=== PATIENT | male | born 1955 | race African-American/Black ===

== ENCOUNTER 2016-08-12 08:24 | Emergency (ER) ==
[2016-08-12] MEDS ORDERED: DUONEB (A & A) INH ONE (08:35)
[2016-08-12 08:44] VITALS: BP 149/96
[2016-08-12 08:58] LABS: MANUAL DIFF NEEDED? NO
[2016-08-12 09:00] LABS: BASO% 0.6 % (0.0-0.8); EOS# 0.26 X1000 (0.0-0.7); EOS% 4.8 % (0.0-10.0); HEMATOCRIT 38.3 % (42.0-52.0); HEMOGLOBIN 13.5 g/dL (14.0-18.0); IMM GRAN# 0.01 X1000 (0.0-0.04); IMM GRAN% 0.2 % (0.0-0.5); LYMPH# 1.54 X1000 (1.2-3.4); LYMPH% 28.3 % (20.5-51.1); MCH 28.1 PG (27-31); MCHC 35.2 g/dL (33-37); MCV 79.8 FL (81-99); MONO# 0.64 X1000 (0.11-0.59); MONO% 11.8 % (1.7-9.3); MPV 10.1 FL (7.4-10.4); NEUT% 54.3 % (42.2-75.2); PLT 325 X1000 (130-400)
--- NOTE | 2016-08-12 09:20 | PROVIDER DOCUMENTATION ---
HPI-Respiratory General - General Source: patient - History of Present Illness-Resp Quality of Pain: reports: pressure Severity in ED: reports: mild Onset/Duration: reports: unsure Timing: reports: still present Exposure: reports: unknown cause Cough Quality/Degree: reports: moderate, productive cough Episode Frequency: frequent episodes Current Respiratory Medication Therapy: Initiated see nurses note Modifying Factors: improves with: nothing Associated Symptoms: reports: cough, fever/chills (chills), shortness of breath , wheezing. denies: chest pain/soreness, dizziness, earache, facial pain, flu- like symptoms, headache, heart racing, hurts to breathe, hyperventilating, lightheadedness, muscle/bodyaches, nasal congestion, nasal drainage, sinus pain , short of breath, sore throat, sweaty Similar Symptoms Previously?: Yes Recently seen or treated by another doctor?: No <Mackenzie Medina - Last Filed: 08/12/16 11:09> <Jose Alejandro Tidwell - Last Filed: 08/12/16 11:10> - General Chief Complaint: Shortness of Breath Stated Complaint: SOB Time Seen by Provider: 08/12/16 09:16 Allergies/Adverse Reactions: Patient Allergies Allergy/AdvReac Type Severity Reaction Status Date / Time No Known Allergies Allergy Verified 08/12/16 08:33 Home Medications: Home Medication List Medication Instructions Recorded Confirmed Last Taken Type Albuterol Sulfate [Proair Hfa] 1 dose 08/12/16 Unknown History Amoxicillin 875 mg PO BID #20 tablet 08/12/16 Unknown Rx Prednisone 5 mg PO DIRECTED PRN #30 tablet 08/12/16 Unknown Rx - History of Present Illness-Resp Nature of Presenting Problem: Pt is 61 y/o M presents to the ED with SOB. Pt states he has been SOB his whole life. Pt denies F. Pt states chronic cough. (Mackenzie Medina) Review of Systems - Adult - REVIEW OF SYSTEMS - ADULT Constitutional: reports: chills. denies: fever Eyes: denies: blurred vision, double vision Ears, Nose, Mouth & Throat: denies: ear pain, nose pain, throat pain Cardiovascular: denies: chest pain, heart murmur, irregular heart rate Respiratory: reports: cough, shortness of breath, wheezing Gastrointestinal: denies: abdominal pain, diarrhea, nausea, vomiting Genitourinary: denies: dysuria, hematuria Musculoskeletal: denies: bone pain, joint pain, neck pain Integumentary: denies: hives, itching Neurological: denies: dizziness/vertigo, headache/migraines Psychiatric: reports: no symptoms reported Endocrine: reports: no symptoms reported Hematologic/Lymphatic: reports: no symptoms reported Allergic/Immunologic: reports: no symptoms reported All Other Systems: Reviewed and Negative <Valerie Medinaomi - Last Filed: 08/12/16 11:09> Past History - Adult - PAST MEDICAL HISTORY-ADULT Review of Records: reports: Nursing Assessment Review, Medications Reviewed, Social history reviewed & non-contributory. Major Childhood Illnesses: reports: denies history Cardiovascular: reports: denies history Respiratory: reports: asthma Gastrointestinal: reports: denies history Obstetrical/Gynecological: reports: denies history Genitourinary: reports: denies history Musculoskeletal: reports: denies history Neurological: reports: denies history Endocrine/Immune: reports: denies history Other Conditions: reports: denies history - PRIOR SURGERIES/PROCEDURES Surgical/Procedure History: reports: reviewed, not pertinent - IMMUNIZATION STATUS Childhood Immunizations: See Nurse Assessment Flu Vaccine: See Nurse Assessment - FAMILY HISTORY Family History: reviewed, not pertinent - SOCIAL HISTORY Smoking: cigarettes, less than 1 pack/day Provider spent 3-5 mins advising pt. on dangers of tobacco.: Discussed manners to quit use, and f/u contacts for add'l counseling. Substance Use: denies Living Situation: family <Paul Medinai - Last Filed: 08/12/16 11:09> Physical Exam-General - PHYSICAL EXAM-ADULT Initial Vital Signs Reviewed: Yes - CONSTITUTIONAL General Appearance: appears well, alert, no apparent distress - EYES Eyes: PERRL/EOMI, pink conjunctivae, fundi clear, no AV nicking - HEAD, EARS, NOSE, MOUTH & THROAT HENMT: normocephalic/atraumatic, moist mucous membranes, normal ENT inspection, TMs normal, pharynx normal - NECK Neck: non-tender, full range of motion, supple, normal inspection - RESPIRATORY Respiratory: chest non-tender, no pleuratic chest pain, no respiratory distress , no accessory muscle use, wheezing, increased rate - CARDIOVASCULAR Cardiovascular: normal peripheral pulses, regular rate, rhythm, no edema, no gallop, no JVD, no murmur - GASTROINTESTINAL (ABDOMEN) Abdominal Exam: normal bowel sounds, non tender, soft, no organomegaly, no pulsatile mass - LYMPHATIC Lymphatic: no adenopathy - MUSCULOSKELETAL Back Exam: normal inspection, no CVA tenderness, no vertebral tenderness, scoliosis Extremity: normal range of motion, non-tender, normal gait, normal inspection, no pedal edema, no calf tenderness, normal capillary refill - SKIN Integumentary: normal color, normal turgor, warm/dry - NEUROLOGIC Neurologic: grossly normal - PSYCHIATRIC Psych/Mental Status: normal mood/affect, oriented x 3 <Mackenzie Medina - Last Filed: 08/12/16 11:09> Progress - XRAY 1 XRAY: Bilateral XRAY Study: Chest Impression: Abnormal XRAY Interpretation: COPD and scoliosis per Dr. Tidwell <Mackenzie Medina - Last Filed: 08/12/16 11:09> <Jose Alejandro Tidwell - Last Filed: 08/12/16 11:10> - PLAN OF CARE/RESULTS Progress/Plan/Lab Results: Laboratory Tests 08/12/16 08:50 WBC 5.44 RBC 4.80 Hgb 13.5 L Hct 38.3 L MCV 79.8 L MCH 28.1 MCHC 35.2 RDW Std Deviation 13.4 Plt Count 325 MPV 10.1 Immature Gran % (Auto) 0.2 Neut % (Auto) 54.3 Lymph % (Auto) 28.3 [place] % (Auto) 11.8 H Eos % (Auto) 4.8 Baso % (Auto) 0.6 Immature Gran # (Auto) 0.01 Neut # (Auto) 2.96 Lymph # (Auto) 1.54 [place] # (Auto) 0.64 H Eos # (Auto) 0.26 Baso # (Auto) 0.03 Orders Category Date Time Status CHEST-2 VIEWS [RAD] Stat Exams 08/12/16 08:35 Taken CBC WITH DIFF [HEME] Stat Lab 08/12/16 08:50 Completed COMPREHENSIVE METABOLIC PANEL [CHEM] Stat Lab 08/12/16 09:17 Ordered Albuterol 2.5MG/Ipratrop 0.5MG [Duoneb (A & A)] Med 08/12/16 08:35 Discontinued 3 ml INH NOW ONE Aerosol Treatments Routine Oth 08/12/16 08:35 Active Aerosol Treatments Stat Oth 08/12/16 08:35 Active Aerosol Treatments Stat [facility] 08/12/16 08:35 Active Pulse Oximetry Stat [facility] 08/12/16 08:35 Active Vital Signs - 24 hr 08/12/16 08:30 Temperature 97.3 F L Pulse Rate 86 Respiratory 22 Rate Blood Pressure 149/96 O2 Sat by Pulse 98 Oximetry Laboratory Tests 08/12/16 08/12/16 08:50 08:50 WBC 5.44 RBC 4.80 Hgb 13.5 L Hct 38.3 L MCV 79.8 L MCH 28.1 MCHC 35.2 RDW Std Deviation 13.4 Plt Count 325 MPV 10.1 Immature Gran % (Auto) 0.2 Neut % (Auto) 54.3 Lymph % (Auto) 28.3 [place] % (Auto) 11.8 H Eos % (Auto) 4.8 Baso % (Auto) 0.6 Immature Gran # (Auto) 0.01 Neut # (Auto) 2.96 Lymph # (Auto) 1.54 [place] # (Auto) 0.64 H Eos # (Auto) 0.26 Baso # (Auto) 0.03 Sodium 141 Potassium 4.2 Chloride 106 Carbon Dioxide 29 Anion Gap 6 BUN 12 Creatinine 1.0 Estimated GFR/1.73 m2 > 60 BUN/Creatinine Ratio 12 Glucose 62 L Calculated Osmolality 279 Calcium 8.8 Total Bilirubin 0.70 AST 35 H ALT 17 Alkaline Phosphatase 80 Total Protein 6.9 Albumin 4.1 Globulin 3.0 Albumin/Globulin Ratio 1.0 (Mackenzie Medina) Departure <Mackenzie Medina - Last Filed: 08/12/16 11:09> - Departure Time of Disposition Order: 11:10 Certified Medical Emergency: Emergent <Jose Alejandro Tidwell - Last Filed: 08/12/16 11:10> - Departure DIAGNOSIS: COPD exacerbation Disposition: HOME 01 Condition: Stable Prescriptions: Amoxicillin 875 mg PO BID #20 tablet Prednisone 5 mg PO DIRECTED PRN #30 tablet PRN Reason: Wheezing Referrals: None,PCP [Primary Care Provider] - Instructions: Amoxicillin capsules or tablets, Prednisone tablets Attestation - Scribe Verification/Attestation Scribe:: Mackenzie Medina Acting as Scribe for:: Jose Alejandro Tidwell Scribe documention review:: This chart was documented by a scribe and accurately reflects the service the provider performed and the decisions made by the provider. <Mackenzie Medina - Last Filed: 08/12/16 11:09> Physician Attestation
[2016-08-12 09:38] LABS: AGAP 6; ALBUMIN 4.1 g/dL (3.5-5.0); ALKALINE PHOSPHATASE 80 U/L (32-122); BUN 12 mg/dL (8-22); CALCIUM 8.8 mg/dL (8.8-10.2); CHLORIDE 106 mmol/L (98-107); COSMO 279; GOT 35 U/L (10-34); GPT 17 U/L (10-44); POTASSIUM 4.2 mmol/L (3.5-5.1); SODIUM 141 mmol/L (136-145); TCO2 29 mmol/L (25-35); TOTAL PROTEIN 6.9 g/dL (6.3-8.3)
--- NOTE | 2016-08-12 13:53 | Diag Imaging Result Document ---
PROCEDURE NAME: CHEST-2 VIEWS - 08/12/2016 PA AND LATERAL RADIOGRAPH OF THE CHEST: COMPARISON: None available. FINDINGS: The lungs appear somewhat hyperinflated suggesting possible COPD. The lungs are clear otherwise. There is no definite pleural fluid collection. Cardiac silhouette and central vasculature are unremarkable. There is thoracic scoliosis. IMPRESSION: Suggestion of possible COPD. No definite acute pathology.
== END 2016-08-12 11:19 | disposition home or self-care (01) ==
LOC: P.ED 08:24
DX: J44.1 Chronic obstructive pulmonary disease with (acute) exacerbation (principal); R05 Cough; R09.3 Abnormal sputum; R68.83 Chills (without fever); R06.02 Shortness of breath; R06.2 Wheezing; F17.210 Nicotine dependence, cigarettes, uncomplicated; Z71.6 Tobacco abuse counseling
CPT/HCPCS: 36415; 71020; 80053; 85025; 94640; 99283

== ENCOUNTER 2016-08-28 13:15 | Inpatient (IN) ==
[2016-08-28 14:05] LABS: MANUAL DIFF NEEDED? NO
[2016-08-28 14:08] LABS: BASO% 0.1 % (0.0-0.8); EOS# 0.04 X1000 (0.0-0.7); EOS% 0.4 % (0.0-10.0); HEMATOCRIT 43.5 % (42.0-52.0); HEMOGLOBIN 15.8 g/dL (14.0-18.0); IMM GRAN# 0.02 X1000 (0.0-0.04); IMM GRAN% 0.2 % (0.0-0.5); LYMPH# 2.35 X1000 (1.2-3.4); LYMPH% 22.1 % (20.5-51.1); MCH 28.6 PG (27-31); MCHC 36.3 g/dL (33-37); MCV 78.7 FL (81-99); MONO# 1.05 X1000 (0.11-0.59); MONO% 9.9 % (1.7-9.3); MPV 11.1 FL (7.4-10.4); NEUT% 67.3 % (42.2-75.2); PLT 295 X1000 (130-400); RBC 5.53 XMIL (4.7-6.1)
[2016-08-28 14:35] LABS: ALBUMIN 4.2 g/dL (3.5-5.0); CALCIUM 9.6 mg/dL (8.8-10.2); POTASSIUM 4.3 mmol/L (3.5-5.1); TOTAL BILIRUBIN 1.1 mg/dL (0.20-1.00); TOTAL PROTEIN 7.6 g/dL (6.3-8.3)
[2016-08-28] MEDS ORDERED: SODIUM CHLORIDE 0.9% INJ ONE (15:04)
[2016-08-28] MEDS ORDERED: PROTONIX IV ONE (15:04)
[2016-08-28] MEDS ORDERED: G.I. COCKTAIL PO ONE (15:04)
[2016-08-28] MEDS ORDERED: ZOFRAN IV ONE (15:04)
[2016-08-28] MEDS ORDERED: M.V.I.-12 10 ML, FOLIC ACID 1 MG, MAGNESIUM SULFATE 1 GM, THIAMINE 100 MG in NS 1,000 ML IV ONE (15:07)
[2016-08-28] MEDS ORDERED: NS 1,000 ML IV ONE (15:10)
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
--- NOTE | 2016-08-28 16:19 | Diag Imaging Result Document ---
PROCEDURE NAME: ABDOMEN/PELVIS W/O CONTRAST - 08/28/2016 CT ABDOMEN AND PELVIS WITHOUT CONTRAST: COMPARISON: There is minimal bronchiectasis at the left lower lung zone. There is no pleural fluid collection. The gallbladder and appendix appear normal. The stomach is grossly unremarkable. There are no renal or ureteral stones identified and there is no hydronephrosis. The kidneys are grossly unremarkable, otherwise. The urinary bladder is unremarkable. The liver, pancreas, adrenal glands, and the remainder of the GI tract is essentially unremarkable. There is a 1.1 cm low- dense lesion involving the spleen posteriorly that is nonspecific, probably a cyst containing proteinaceous debris. No focal inflammatory changes, free abdominal gas, or free fluid is appreciated. There is scoliosis and fairly extensive degenerative change throughout the spine as well as both hips. IMPRESSION: Incidental/nonacute findings detailed above, but no definite acute pathology.
[2016-08-28 19:05] LABS: URINE CULTURE NEEDED? NO; URINE MICRO REVIEW NEEDED? NO; URINE SOURCE CLEAN CATCH
[2016-08-28 19:10] LABS: BILIRUBIN URINE NEGATIVE (NEGATIVE); BLOOD URINE NEGATIVE (NEGATIVE); COLOR YELLOW; GLUCOSE URINE NEGATIVE (NEGATIVE); LEUKOCYTES URINE NEGATIVE (NEGATIVE); NITRITE URINE NEGATIVE (NEGATIVE); PH URINE 5.5; PROTEIN URINE 30 mg/dL (NEGATIVE); TURBIDITY URINE CLEAR (CLEAR); UROBILINOGEN URINE NORMAL (NORMAL)
[2016-08-28 19:12] LABS: INR 1.02; PROTIME 10.7 Seconds (9.2-11.7)
[2016-08-28 19:14] LABS: UR EPITHELIAL CELLS <10 /HPF (<10); URINE BACTERIA NEGATIVE /HPF; URINE RBC <10 /HPF (<10); URINE WBC <10 /HPF (<10)
[2016-08-28] MEDS ORDERED: NICODERM PATCH TD PRN (19:29)
[2016-08-28 19:44] LABS: UR CREAT RANDOM 424.7 mg/dL (14-26)
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
[2016-08-29] MEDS ORDERED: ZOFRAN IV PRN (00:26)
[2016-08-29] MEDS ORDERED: ATIVAN IV PRN ×2 (00:26)
[2016-08-29] MEDS: DUONEB (A & A) INH SCH ×7 (00:26→23:20)
[2016-08-29] MEDS: NS 1,000 ML IV SCH ×3 (01:19→17:48)
[2016-08-29] MEDS: M.V.I.-12 10 ML, FOLIC ACID 1 MG, MAGNESIUM SULFATE 1 GM, THIAMINE 100 MG in NS 1,000 ML IV SCH (01:19)
[2016-08-29] MEDS: NICODERM PATCH TD SCH (01:19)
[2016-08-29] MEDS: PROTONIX IV SCH ×2 (01:19→12:36)
[2016-08-29] MEDS: ROCEPHIN 1 GM/NS 1 GM/50 ML IVPB IV SCH (01:20)
[2016-08-29] MEDS: SODIUM CHLORIDE 0.9% INJ ONE (01:20)
[2016-08-29 07:11] LABS: IRON SATURATION 52 %; TIBC 206 ug/dL; TOTAL IRON 108 ug/dL (53-167); UNBOUND IRON 98 ug/dL (112-346)
[2016-08-29 07:14] LABS: FREE T4 1.24 ng/dL (0.93-1.70)
[2016-08-29 07:29] LABS: AGAP 8; BUN 31 mg/dL (8-22); CALCIUM 7.9 mg/dL (8.8-10.2); CHLORIDE 107 mmol/L (98-107); COSMO 287; HDL 50 mg/dL (35-55); LDL 56 mg/dL; POTASSIUM 4.6 mmol/L (3.5-5.1); SODIUM 141 mmol/L (136-145); TCO2 26 mmol/L (25-35); TRIGLYCERIDES 87 mg/dL (39-160); VLDL 17 mg/dL
--- NOTE | 2016-08-29 08:28 | Diag Imaging Result Document ---
PROCEDURE NAME: US RENAL 2 (RETROPER) COMPLETE - 08/29/2016 RENAL ULTRASOUND: FINDINGS: The right kidney measures 10.1 x 4.7 x 4.0 cm. Normal renal echogenicity and cortical thickness. No renal stone or hydronephrosis. No renal mass. The left kidney measures 10.1 x 3.9 x 4.1 cm. Normal renal echogenicity and cortical thickness. No renal stone or hydronephrosis. The kidney may be malrotated. The urinary bladder is moderately distended and appears normal. IMPRESSION: Normal renal ultrasound.
[2016-08-29] MEDS ORDERED: SODIUM CHLORIDE 0.9% 10 ML ONE (09:48)
[2016-08-29 10:09] LABS: HEMATOCRIT 35.9 % (42.0-52.0); HEMOGLOBIN 12.8 g/dL (14.0-18.0); MCH 28.8 PG (27-31); MCHC 35.7 g/dL (33-37); MCV 80.9 FL (81-99); MPV 11.2 FL (7.4-10.4); RBC 4.44 XMIL (4.7-6.1)
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
--- NOTE | 2016-08-29 16:33 | PROGRESS NOTE ---
DATE: 08/29/2016 SUBJECTIVE: This patient states that he is feeling much better, he is tolerating p.o. He is not complaining of pain at this moment. He denies nausea, vomiting, diarrhea, constipation. OBJECTIVE: Vital Signs: Temperature 98.3 degrees, pulse 74, respiratory rate 18, blood pressure 103/69, O2 saturation 94% on room air. HEENT: Head normocephalic. No trauma. PERRLA. Neck: Supple. No JVD. No masses. Central trachea. Chest: Clear to auscultation. No wheezing. No rales. Cardiovascular: RRR. No murmurs. No gallops or rubs. Abdomen: Soft, mild tenderness to palpation in the epigastric area. Positive bowel sounds. Extremities: No edema. No clubbing. No cyanosis. Neurological: The patient is alert and oriented x3. No focal neurological deficits. LABORATORY: WBC 6.5, hemoglobin 12.8, hematocrit 35.9, platelet 236,000. Sodium 141, potassium 4.6, chloride 107, bicarbonate 26, BUN 31, creatinine 1.7, calcium 7.9. ASSESSMENT AND PLAN: 1. Upper gastrointestinal bleed. I will continue with pantoprazole twice a day. Gastroenterology Department already evaluated this patient and they plan to scope this patient in the morning. He will be NPO after midnight. 2. GERD. Continue with PPIs. 3. History of asthma. He is not having any kind of exacerbation at this moment. We will monitor. 4. History of COPD. He is not having any exacerbation at this moment. We will monitor. 5. Nicotine dependence. I will continue with the nicotine patch. He has been highly advised against cigarette smoking. I will continue with daily cessation education. 6. Possible alcohol dependence. This patient has been highly advised against alcohol abuse. I will put this patient on Ativan p.r.n. in case of withdrawal or delirium tremens. cc: Robi Kent MD
[2016-08-30] MEDS: ROCEPHIN 1 GM/NS 1 GM/50 ML IVPB IV SCH (00:12)
[2016-08-30] MEDS: PROTONIX IV SCH ×2 (00:12→11:40)
[2016-08-30] MEDS: SODIUM CHLORIDE 0.9% INJ ONE (00:13)
[2016-08-30] MEDS: M.V.I.-12 10 ML, FOLIC ACID 1 MG, MAGNESIUM SULFATE 1 GM, THIAMINE 100 MG in NS 1,000 ML IV SCH (00:13)
[2016-08-30] MEDS: DUONEB (A & A) INH SCH ×6 (03:20→23:07)
[2016-08-30 07:00] LABS: MANUAL DIFF NEEDED? NO
[2016-08-30 07:04] LABS: BASO% 0.4 % (0.0-0.8); EOS# 0.07 X1000 (0.0-0.7); EOS% 1.2 % (0.0-10.0); HEMATOCRIT 34.7 % (42.0-52.0); HEMOGLOBIN 12.5 g/dL (14.0-18.0); LYMPH# 1.65 X1000 (1.2-3.4); LYMPH% 28.9 % (20.5-51.1); MCH 29.1 PG (27-31); MCV 80.9 FL (81-99); MONO# 0.77 X1000 (0.11-0.59); MONO% 13.5 % (1.7-9.3); MPV 10.9 FL (7.4-10.4); PLT 211 X1000 (130-400); RBC 4.29 XMIL (4.7-6.1)
[2016-08-30 07:22] LABS: AGAP 8; BUN 16 mg/dL (8-22); CALCIUM 8.1 mg/dL (8.8-10.2); CHLORIDE 104 mmol/L (98-107); COSMO 273; POTASSIUM 5.4 mmol/L (3.5-5.1); SODIUM 136 mmol/L (136-145); TCO2 24 mmol/L (25-35)
[2016-08-30 10:08] LABS: HEPATITIS PROFILE ACUTE SEE COMMENTS
[2016-08-30] MEDS: NICODERM PATCH TD SCH (10:13)
[2016-08-30] MEDS: NS 1,000 ML IV SCH ×2 (10:59→12:05)
[2016-08-30] MEDS: SODIUM CHLORIDE 0.9% 10 ML ONE (11:41)
--- NOTE | 2016-08-30 15:40 | PROGRESS NOTE ---
DATE: 08/30/2016 SUBJECTIVE: This patient states that he is feeling better. He is NPO today because he is going for an endoscopy. No complaints. OBJECTIVE: Vital Signs: Temperature. 97.7 degrees, pulse 67, respiratory rate 16, blood pressure 128/99, O2 saturation 96 on room air. HEENT: Head normocephalic. No trauma. PERRLA. Neck: Supple. No JVD. No masses. Central trachea. Chest: Clear to auscultation. No wheezing. No rales. Cardiovascular: RRR. No murmurs. No gallops or rubs. Abdomen: Soft, mild tenderness to palpation in the epigastric area. Positive bowel sounds. Extremities: No edema. No clubbing. No cyanosis. Neurological: The patient is alert and oriented x3. No focal neurological deficits. LABORATORY: WBC 5.7, hemoglobin 12.5, hematocrit 34.7, platelets 211,000. Sodium 136, potassium 5.4, chloride 104, bicarbonate 24, BUN 16, creatinine 1.2, calcium 8.1, magnesium 1.8. ASSESSMENT AND PLAN: 1. Upper gastrointestinal bleed. We will continue with pantoprazole twice a day. Hopefully he will be scoped today by Gastroenterology Department. This patient is NPO. 2. Gastroesophageal reflux disease. Continue with PPIs. 3. History of asthma. He is not having any kind of exacerbation at this moment. 4. History of COPD not in exacerbation. We will monitor. 5. Nicotine dependence. I will continue with nicotine patch. He has been highly advised against smoking cigarettes. I will continue with daily cessation education. 6. Possible alcohol dependence. This patient has been highly advised against alcohol abuse. This patient has been placed on Ativan p.r.n. in case of withdrawal or delirium tremens. cc: Robi Kent MD
[2016-08-30] MEDS ORDERED: DIPRIVAN 1% ONE (17:42)
[2016-08-30] MEDS ORDERED: MIRALAX PO ONE (17:49)
[2016-08-30] MEDS ORDERED: DIFLUCAN PO ONE (18:00)
[2016-08-30] MEDS: CARAFATE LIQUID PO SCH (21:23)
[2016-08-31] MEDS: ROCEPHIN 1 GM/NS 1 GM/50 ML IVPB IV SCH (00:43)
[2016-08-31] MEDS: SODIUM CHLORIDE 0.9% 10 ML ONE (00:43)
[2016-08-31] MEDS: M.V.I.-12 10 ML, FOLIC ACID 1 MG, MAGNESIUM SULFATE 1 GM, THIAMINE 100 MG in NS 1,000 ML IV SCH (00:43)
[2016-08-31] MEDS: PROTONIX IV SCH (00:43)
[2016-08-31] MEDS: DUONEB (A & A) INH SCH ×3 (03:44→11:27)
[2016-08-31 07:06] LABS: MANUAL DIFF NEEDED? NO
[2016-08-31 07:20] LABS: AGAP 5; BUN 12 mg/dL (8-22); CALCIUM 8.3 mg/dL (8.8-10.2); CHLORIDE 102 mmol/L (98-107); COSMO 275; POTASSIUM 4.7 mmol/L (3.5-5.1); SODIUM 138 mmol/L (136-145); TCO2 31 mmol/L (25-35)
[2016-08-31 07:22] LABS: BASO% 0.6 % (0.0-0.8); EOS# 0.13 X1000 (0.0-0.7); EOS% 2.8 % (0.0-10.0); HEMATOCRIT 36.4 % (42.0-52.0); LYMPH# 1.76 X1000 (1.2-3.4); LYMPH% 37.9 % (20.5-51.1); MCH 28.6 PG (27-31); MCHC 35.7 g/dL (33-37); MCV 80.2 FL (81-99); MONO# 0.64 X1000 (0.11-0.59); MONO% 13.8 % (1.7-9.3); NEUT% 44.9 % (42.2-75.2); PLT 221 X1000 (130-400); RBC 4.54 XMIL (4.7-6.1)
[2016-08-31 07:53] VITALS: BP 125/89
[2016-08-31] MEDS ORDERED: DIFLUCAN PO SCH (09:00)
[2016-08-31] MEDS: CARAFATE LIQUID PO SCH (09:10)
[2016-08-31] MEDS: NICODERM PATCH TD SCH (09:11)
[2016-08-31] MEDS ORDERED: ANESTHESIA PB SET 88 IN 5742 ONE (09:52)
[2016-08-31] MEDS ORDERED: XYLOCAINE-MPF 2% ONE (09:52)
[2016-08-31] MEDS ORDERED: EXTENSION SET 32 IN 4522 ONE (09:52)
[2016-08-31] MEDS ORDERED: LR 1,000 ML ONE (09:52)
[2016-08-31] MEDS ORDERED: SODIUM CHLORIDE 0.9% 10 ML ONE (10:58)
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
--- NOTE | 2016-09-01 15:59 | OPERATIVE NOTE ---
PROCEDURE DATE: 08/30/2016 REFERRING PHYSICIAN: Robi Walter M.D. INDICATIONS FOR PROCEDURE: 1. Coffee-ground emesis. 2. Nausea with vomiting. 3. Melena. 4. NSAID use. 5. History of chronic ETOH use. PROCEDURE PERFORMED: Esophagogastroduodenoscopy with biopsy. CONSENT: Informed consent was obtained from the patient prior to the procedure. The risks, benefits, and alternatives were discussed. MEDICATION: The patient received monitored anesthesia care. PERFORMING PHYSICIAN: Claire Goldsmith M.D. ASSISTANTS: 1. ST. Doc 2. Abiel Soliz RN. 3. Agus Zendejas CRNA. 4. Orion Jarrett M.D. (anesthesia). COMPLICATIONS: There were no complications. ESTIMATED BLOOD LOSS: Less than 1 mL. SPECIMENS REMOVED: Gastric biopsy. FINDINGS: After sedation was achieved, the upper endoscope was inserted to the 2nd portion of the duodenum. The hypopharynx appeared endoscopically normal. In the upper and middle esophagus, there were multiple whitish plaques consistent with Libertad esophagitis. In the distal esophagus, there were streaks of erythema with superficial erosions that were near circumferential consistent with grade C erosive esophagitis. The GE junction was measured at 45 cm from the incisors. There is a hiatal hernia that spanned from 45-50 cm. In the gastric lumen, there was severe acute erosive gastritis with old blood but no active bleeding. In the antrum, there was a large whitish based ulcer with no stigmata of bleeding. On retroflexed view, there was erosive gastritis with benign appearing polyps. Biopsies were taken from the gastric mucosa for further evaluation. The pylorus appeared grossly normal. In the duodenum, there was a 10-15 mm whitish based ulcer in the bulb. The second and third portion of the duodenum had duodenitis. There were no other findings. Specifically, there was no evidence of Jasmine esophagus. The esophageal veins were prominent but no varices per se were seen. After the exam was complete the lumen was decompressed and the scope was removed without incident. IMPRESSION: 1. Whitish plaques in upper esophagus consistent with Libertad esophagitis. 2. Grade C erosive esophagitis. 3. Hiatal hernia. 4. Severe acute erosive gastritis. 5. Antral ulcer with a whitish base. 6. Fundic gland polyps. 7. Duodenal bulb ulcer. 8. Severe duodenitis. 9. No esophageal varices. 10. No Jasmine esophagus. RECOMMENDATION: 1. Await biopsy results. 2. Begin Prilosec 40 mg daily. 3. Begin Carafate 1 g 4 times a day for 12 weeks and then stop. 4. Begin Diflucan 200 mg today followed by 100 mg daily for 20 days. 5. Will advance his diet as tolerated. 6. Will have the patient return to clinic in 6 weeks to assess interval progress. He should have a CBC drawn on the morning of clinic so that we have the results available at the time of his appointment. cc: Robi Kent MD MTDD
== END 2016-08-31 11:50 | disposition home or self-care (01) ==
LOC: ED 13:15 → SUATTDRO 20:21 → EDIPHOLD 20:21 → 3N 08-29 08:59
PROVIDERS: ATTEND Internal Medicine

== ENCOUNTER 2016-09-28 03:06 | Inpatient (IN) ==
--- NOTE | 2016-09-28 03:15 | PROVIDER DOCUMENTATION ---
HPI-Syncope/Dizziness - General Chief Complaint: Near Syncope Stated Complaint: weakness Time Seen by Provider: 09/28/16 03:15 Source: family Allergies/Adverse Reactions: Patient Allergies Allergy/AdvReac Type Severity Reaction Status Date / Time Iodine and Iodide Containing Allergy SWELLING Verified 09/28/16 03:13 Produc Home Medications: Home Medication List Medication Instructions Recorded Confirmed Last Taken Type Fluconazole [Diflucan] 100 mg PO DAILY #20 tablet 08/31/16 09/28/16 Unknown Rx Pantoprazole Sodium [Protonix] 40 mg PO BID #60 tablet. 08/31/16 09/28/16 Unknown Rx Pantoprazole Sodium [Protonix] 40 mg PO DAILY #30 tablet. 08/31/16 09/28/16 Unknown Rx Sucralfate [Carafate] 1 gm PO Q6HR #112 tablet 08/31/16 09/28/16 Unknown Rx - History of Present Illness-Syncope/Dizzy Prior Episodes: reports: single episode today Onset/Duration: denies: unsure, abrupt, gradual, just prior to arrival, 1/2 hour ago, 1 hour ago, 1-3 hours ago, 4-6 hours ago, 24 hours ago, 2 days ago, 3 days ago, 4 days ago, 5 days ago, 6 days ago, 1 week ago, last week, this morning, this afternoon, this evening, last night, other Review of Systems - Adult - REVIEW OF SYSTEMS - ADULT Constitutional: reports: no symptoms reported Eyes: reports: no symptoms reported Ears, Nose, Mouth & Throat: reports: no symptoms reported Cardiovascular: reports: no symptoms reported Respiratory: reports: no symptoms reported Gastrointestinal: reports: no symptoms reported Genitourinary: reports: no symptoms reported Musculoskeletal: reports: no symptoms reported Integumentary: reports: no symptoms reported Neurological: reports: no symptoms reported Psychiatric: reports: no symptoms reported Endocrine: reports: no symptoms reported Hematologic/Lymphatic: reports: no symptoms reported Allergic/Immunologic: reports: no symptoms reported All Other Systems: Reviewed and Negative Past History - Adult - PAST MEDICAL HISTORY-ADULT Review of Records: reports: Old Records Reviewed, Nursing Assessment Review, Medications Reviewed, Social history reviewed & non-contributory. Major Childhood Illnesses: reports: denies history Cardiovascular: reports: denies history Respiratory: reports: asthma Gastrointestinal: reports: GERD Obstetrical/Gynecological: reports: denies history Genitourinary: reports: denies history Musculoskeletal: reports: denies history Neurological: reports: denies history Endocrine/Immune: reports: denies history Other Conditions: reports: denies history - PRIOR SURGERIES/PROCEDURES Surgical/Procedure History: reports: reviewed, not pertinent - IMMUNIZATION STATUS Childhood Immunizations: See Nurse Assessment Flu Vaccine: See Nurse Assessment - FAMILY HISTORY Family History: reviewed, not pertinent Physical Exam-General - PHYSICAL EXAM-ADULT Initial Vital Signs Reviewed: Yes - CONSTITUTIONAL General Appearance: appears well, alert, no apparent distress Progress - PLAN OF CARE/RESULTS Progress/Plan/Lab Results: Laboratory Results - last 24 hr 09/28/16 09/28/16 03:25 03:25 Creatine Kinase Index 1.4 CK-MB (CK-2) 4.24 [id number] Pept 179 H Orders Category Date Time Status Admit - [facility] Routine AdmDCTranf 09/28/16 05:59 Ordered Activity - Strict Bedrest ORDERED Care 09/28/16 05:59 Active Call Admitting on Arrival AT ADMISSION Care 09/28/16 05:59 Active Cardiac Monitoring DIRECTED Care 09/28/16 03:16 Active Oxygen Therapy- ED Nursing DIRECTED Care 09/28/16 03:16 Active Saline Loc DIRECTED Care 09/28/16 05:59 Active Saline Loc NOW Care 09/28/16 03:16 Active Vital Signs Order ARRIVAL TO ROOM Care 09/28/16 05:59 Active NPO Diet 09/28/16 06:00 Completed CHEST-2 VIEWS [RAD] Stat Exams 09/28/16 03:16 Completed HEAD W/O CONTRAST [CT] Stat Exams 09/28/16 03:44 Completed ALCOHOL BLOOD Stat Lab 09/28/16 03:25 Completed CBC WITH ELECTRONIC DIFF [HEME] Stat Lab 09/28/16 03:25 Completed CK PROFILE [SP CHEM] Stat Lab 09/28/16 03:25 Completed COMPREHENSIVE METABOLIC PANEL [CHEM] Stat Lab 09/28/16 03:25 Completed MAGNESIUM [CHEM] Stat Lab 09/28/16 03:25 Completed PRO B-NATRIURETIC PEPTIDE Stat Lab 09/28/16 03:[address] Com[address]IME WITH INR PL [COAG] Stat Lab 09/28/16 03:[address] [COAG] Stat Lab 09/28/16 03:25 Completed TROPONIN T Stat Lab 09/28/16 03:25 Completed 0.9% Sodium Chloride Inj [Ns] 1,000 ml Med 09/28/16 05:59 Discontinued IV 150 mls/hr Oxygen Device Routine Oth 09/28/16 05:59 Active EKG [EKG] Stat Ther 09/28/16 03:16 Draft Transfer/Admit Order [TRANSFER] Routine Transfer 09/28/16 06:00 Ordered Result Diagrams: 09/28/16 03:25 09/28/16 03:25 Departure - Departure Time of Disposition Decision: 03:08 DIAGNOSIS: COPD exacerbation Disposition: HOME 01 Certified Medical Emergency: Emergent Condition: Stable - Critical Care Note This patient required my direct & personal management of CC.: No
[2016-09-28 03:38] LABS: MANUAL DIFF NEEDED? NO
[2016-09-28 03:40] LABS: BASO% 0.3 % (0.0-0.8); EOS# 0.05 X1000 (0.0-0.7); EOS% 0.8 % (0.0-10.0); HEMATOCRIT 42.8 % (42.0-52.0); HEMOGLOBIN 15.4 g/dL (14.0-18.0); IMM GRAN# 0.02 X1000 (0.0-0.04); IMM GRAN% 0.3 % (0.0-0.5); LYMPH# 1.81 X1000 (1.2-3.4); LYMPH% 29.7 % (20.5-51.1); MCH 28.2 PG (27-31); MCV 78.2 FL (81-99); MONO# 0.84 X1000 (0.11-0.59); MONO% 13.8 % (1.7-9.3); MPV 10.4 FL (7.4-10.4); NEUT% 55.1 % (42.2-75.2); PLT 301 X1000 (130-400); RBC 5.47 XMIL (4.7-6.1)
[2016-09-28 04:01] LABS: INR 1.06 (0.86-1.15); PROTIME 14.1 Seconds (12.1-15.5)
[2016-09-28 04:02] LABS: PTT PL 29.1 Seconds (22.6-43.9)
[2016-09-28 04:06] LABS: AGAP 17; ALBUMIN 4.5 g/dL (3.5-5.0); ALKALINE PHOSPHATASE 81 U/L (32-122); BUN 7 mg/dL (8-22); CALCIUM 9.2 mg/dL (8.8-10.2); CHLORIDE 98 mmol/L (98-107); COSMO 274; GOT 24 U/L (10-34); GPT 13 U/L (10-44); MAGNESIUM 2.1 mg/dL (1.5-2.7); POTASSIUM 3.4 mmol/L (3.5-5.1); SODIUM 138 mmol/L (136-145); TCO2 23 mmol/L (25-35)
[2016-09-28 04:07] LABS: CK PROFILE 293 U/L (24-204)
[2016-09-28 04:21] LABS: CK INDEX 1.4 (0.0-2.5); CK-MB 4.24 ng/mL (0.0-5.0)
[2016-09-28] MEDS ORDERED: NS 1,000 ML IV ONE (05:59)
--- NOTE | 2016-09-28 05:59 | EKG Report ---
Test Performed on : 09/28/2016 03:05:41 AM Test Reason : CHEST PAIN Blood Pressure : / mmHG Vent. Rate : 097 BPM Atrial Rate : 097 BPM P-R Int : 118 ms QRS Dur : 076 ms QT Int : 368 ms P-R-T Axes : 064 -46 076 degrees QTc Int : 467 ms Sinus rhythm. with premature atrial complexes. and premature ventricular complexes. or fusion comple xes Left axis deviation Abnormal ECG No previous ECGs available Unconfirmed Result
--- NOTE | 2016-09-28 06:59 | Diag Imaging Result Document ---
PROCEDURE NAME: CHEST-2 VIEWS - 09/28/2016 FRONTAL AND LATERAL CHEST, TWO VIEWS: COMPARISON: 08/12/2016. FINDINGS: The lungs are hyperexpanded. The heart is not enlarged. The pulmonary vessels are small. No pneumonia. No pleural effusions. No free air beneath the diaphragm. There is moderate scoliosis. IMPRESSION: Severe emphysema.
--- NOTE | 2016-09-28 07:38 | Diag Imaging Result Document ---
PROCEDURE NAME: HEAD W/O CONTRAST - 09/28/2016 CT BRAIN WITHOUT CONTRAST: FINDINGS: No parenchymal hemorrhage. No epidural or subdural hematoma. No subarachnoid hemorrhage. No mass identified on this noncontrasted exam. No midline shift. No hydrocephalus. No sinus opacification. IMPRESSION: No hemorrhage. Negative brain CT without contrast. A preliminary report was given at 5:35 a.m..
[2016-09-28 13:40] VITALS: BP 107/077
--- NOTE | 2016-10-12 15:44 | HISTORY AND PHYSICAL ---
CHIEF COMPLAINT: Syncope. HISTORY OF PRESENT ILLNESS: The patient presented to the emergency department after having felt lightheaded and dizzy at home. He states that he had stumbled and fell. He denies any loss of consciousness. Denies any chest pains or palpitations. Stated that the symptoms came on abruptly when he tripped at home approximately a couple hours before presenting to the emergency department. Notes his family made him go to the ER. ALLERGIES: Iodine causing swelling. MEDICATIONS: Diflucan, Protonix, Carafate. PAST MEDICAL HISTORY: Reflux. SOCIAL HISTORY: Patient lives at home. He does smoke. Drinks occasionally. FAMILY HISTORY: Noncontributory. REVIEW OF SYSTEMS: The patient denies any fevers, chills, chest pain. Denies palpitations. Denies any headaches, blurry vision, change in vision. Denies any numbness, tingling, weakness in his extremities. Denies any GI or issues. PHYSICAL EXAMINATION: VITAL SIGNS: Reviewed. He is afebrile. Blood pressure stable. Heart rate stable. HEENT: Normocephalic, atraumatic. NECK: Supple. CV: Regular rate. CHEST: Clear. ABDOMEN: Soft. EXTREMITIES: Moves all extremities. NEUROLOGIC: No changes. Patient is awake, alert, oriented. ASSESSMENT: 1. Syncope. 2. Reflux. 3. Presumed chronic obstructive pulmonary disease. PLAN: The patient was seen in the ER. He is able to ambulate to the bathroom without any lightheadedness, chest pain or palpitations. Will observe for a few hours,. If he is stable will discharge him home. cc: Rodney Castro MD
--- NOTE | 2016-10-13 14:36 | DISCHARGE SUMMARY ---
ADMISSION DATE: 09/28/2016 DISCHARGE DATE: 09/28/2016 DISCHARGE DIAGNOSIS: 1. Near syncope. The patient most likely tripped as opposed to truly had a syncopal episode. 2. Chronic obstructive pulmonary disease. 3. Reflux. 4. Chronic tobacco abuse. CONSULTATIONS: None. PROCEDURES: None. BRIEF HOSPITAL COURSE: The patient was seen in the ER and observed. The patient was able to ambulate to the alexandre, into the restroom without any lightheadedness. He was on telemetry and no EKG changes. Enzymes were normal. His labs were normal. Vital signs remained stable. DISPOSITION: Patient will be discharged home. He refuses to stay in the hospital for any further observation or any further treatment. Discussed with the patient that he certainly should follow up outpatient with provider of his choice. Discussed with him the perils of smoking. Discussed with him to avoid alcohol. Discussed with him to come back to the emergency department should symptoms worsen or return. Patient notes that he is aware and states that he is ready to be discharged. cc: Rodney Castro MD
== END 2016-09-28 15:32 | disposition home or self-care (01) ==
LOC: P.ED 03:06 → P.EDIPHOLD 06:10
PROVIDERS: ATTEND Internal Medicine